=== PATIENT | female | born 1985 | race African-American/Black ===

== ENCOUNTER 2020-06-01 10:09 | Day surgery (SDC) | payer OTHER, SELFPAY ==
[~2020-06-01] VITALS: Ht 157.5 cm; Wt 78.0 kg
[2020-06-01 10:46] LABS: APPEARANCE,URINE CLEAR (CLEAR); BILIRUBIN,URINE NEGATIVE (NEGATIVE); BLOOD, URINE 2+ (NEGATIVE); COLOR,URINE YELLOW (YELLOW); LEUKOCYTE ESTERASE ,URINE NEGATIVE (NEGATIVE); NITRITE, URINE NEGATIVE (NEGATIVE); UGLUCOSE NEGATIVE (NEGATIVE)
[2020-06-01 11:53] LABS: RBC,URINE 11-20 (MOD) /HPF (0-5); WBC,URINE 0-5 /HPF (0-5)
[2020-06-01] MEDS ORDERED: ONDANSETRON 4 MG/2 ML VIAL IVP PRN (12:10)
[2020-06-01] MEDS ORDERED: GLYCOPYRROLATE 0.2 MG/ML VIAL ONE (12:10)
[2020-06-01] MEDS ORDERED: KETOROLAC 30 MG/ML VIAL ONE (12:10)
[2020-06-01] MEDS ORDERED: HYDROmorphone 1 MG/ML AMP IVP PRN (12:10)
[2020-06-01] MEDS ORDERED: ROCURONIUM 50 MG/5 ML VIAL IV ONE (12:10)
[2020-06-01] MEDS ORDERED: PROPOFOL 200 MG/20 ML VIAL IV ONE (12:10)
[2020-06-01] MEDS ORDERED: ONDANSETRON 4 MG/2 ML VIAL ONE (12:10)
[2020-06-01] MEDS ORDERED: fentaNYL 0.05 MG/ML VIAL ONE (12:10)
[2020-06-01] MEDS ORDERED: LIDOCAINE 2% 100 MG/5 ML SYR IVP ONE (12:10)
[2020-06-01] MEDS ORDERED: SUCCINYLCHOLINE CHLORIDE 200 MG/10 ML VIAL IVP ONE (12:10)
[2020-06-01] MEDS ORDERED: NEOSTIGMINE 1:1000 10 MG/10 ML VIAL ONE (12:10)
[2020-06-01] MEDS ORDERED: SEVOFLURANE 250 ML BTL INH ONE (12:10)
[2020-06-01] MEDS ORDERED: METOCLOPRAMIDE 10 MG/2 ML INJ VIAL IVP PRN (13:30)
[2020-06-01] MEDS ORDERED: diphenhydrAMINE 50 MG/ML VIAL IVP PRN (13:30)
[2020-06-01] MEDS: HYDROmorphone PFS 2 MG/ML SYR ONE ×4 (14:00→14:30)
[2020-06-01 14:50] VITALS: BP 124/64
--- NOTE | 2020-06-01 14:50 | NUR ---
RECEIVED PATIENT FROM OR NURSE VIA [facility]. PATIENT IS CURRENTLY ALERT AND ORIENTATED TIMES 4. RESPIRATIONS ARE EVEN AND UNLABORED ON ROOM AIR WITH NO DIFFICULTIES BREATHING. SKIN IS INTACT MINUS ABDOMINAL SURGICAL INCISION WITH DRESSING DRY AND INTACT. PATIENT STATED THAT SHE IS IN PAIN BUT FEELS THAT THE PAIN MEDICATIONS IS STARTING TO WORK. IV IS PATENT ASYMPTOMATIC AND INFUSING PER ORDER. SAFETY MEASURES IN PLACE AND WILL CONTINUE TO MONITOR.
--- NOTE | 2020-06-01 16:30 | NUR ---
PA ASKED FOR SOME WATER AT THIS TIME. PT IS CURRENTLY LAYING IN BED WITH NO SIGNS OF DISTRESS. PATIENT STATES THAT HER PAIN IS STARTING TO RISE. SAFETY MEASURES IN PLACE AND WILL CONTINUE TO MONITOR.
--- NOTE | 2020-06-01 17:45 | NUR ---
ENDORSE PATIENT TO [place]. PT IS CURRENTLY LAYING IN BED WITH NO =COMPLAINTS OF PAIN. SAFETY MEASURES IN PLACE AND WILL CONTINUE TO MONITOR.
--- NOTE | 2020-06-01 17:51 | NUR ---
RECEIVED REPORT FROM OLU FERNANDEZ, FOR CONTINUITY OF CARE, PT IS RESTING IN BED, SOME COMPLAINS OF PAIN, WILL MEDICATE WHEN DOSE IS DUE. PT IS STABLE, PT HAS A RIGHT AC 20G SALINE LOCK, SOTELO CATH IN PLACE, BED IN LOW POSITION, CALL LIGHT WITHIN REACH.
[2020-06-01] MEDS: KETOROLAC 30 MG/ML VIAL IVP SCH ×2 (18:03→23:40)
--- NOTE | 2020-06-01 18:06 | NUR ---
ADMINISTERED SCHEDULED MEDICATION, MEDICATION EDUCATION GIVEN, PT TOLERATED WELL, PT VERBALIZED UNDERSTANDING, PT IS STABLE, CALL LIGHT WITHIN REACH.
--- NOTE | 2020-06-01 19:21 | NUR ---
RECEIVED REPORT FROM DAY SHIFT NURSE, FOR CONTINUITY OF CARE. AA&OX4. RESPIRATIONS EVEN AND UNLABORED, BREATHING TO RA. SKIN COLOR APPROPRIATE FOR ETHNICITY. RAC 20G IV IS PATENT AND INTACT, SALINE LOCK. PT IS S/P MYOMECTOMY WITH LOWER ABDOMINAL BRANDO IN PLACE. SOTELO CATHETER IN PLACE. NO ACUTE DISTRESS NOTED. SAFETY MEASURES IN PLACE; CALL LIGHT WITHIN REACH, BED IN LOW POSITION. WILL CONTINUE TO MONITOR.
--- NOTE | 2020-06-01 19:22 | NUR ---
ENDORSE PT TO NIGHT NURSE FOR CONTINUITY OF CARE, PT IS STABLE
--- NOTE | 2020-06-01 19:57 | NUR ---
PT COMPLAINS OF SEVERE ABDOMINAL PAIN. ORDERED PRN IVP DILAUDID ADMINISTERED. WILL REASSESS PAIN. SAFETY MEASURES IN PLACE.
[2020-06-01 20:00] VITALS: BP 115/67
--- NOTE | 2020-06-01 20:11 | NUR ---
CALLED PT'S SISTER, ANAI FONG, AT: [phone] TO UPDATE HER ON PT'S CONDITION, AT PT'S REQUEST.
--- NOTE | 2020-06-01 20:45 | NUR ---
SPOKE WITH DR CAT REGARDING PT'S COMPLAINTS OF SEVERE PAIN AND SLEEPLESSNESS. PER DR CAT, 1 MG IVP DILAUDID Q2H, AND 10 MG PO AMBIEN QHS TO BE ORDERED.
[2020-06-01] MEDS ORDERED: ZOLPIDEM 10 MG TAB PO PRN (20:55)
--- NOTE | 2020-06-01 23:45 | NUR ---
SCHEDULED IVP TORADOL ADMINISTERED. ORDERED PO AMBIEN ALSO ADMINISTERED FOR PT COMPLAINTS OF INSOMNIA. PT TOLERATED PO MED WELL. MEDICATION EDUCATION PROVIDED. SAFETY MEASURES IN PLACE. TELE MONITOR ATTACHED. NO DISTRESS NOTED. WILL CONTINUE TO MONITOR.
[2020-06-02] VITALS: BP 101/50
[2020-06-02] MEDS: KETOROLAC 30 MG/ML VIAL IVP SCH ×2 (06:22→12:00)
--- NOTE | 2020-06-02 06:24 | NUR ---
SCHEDULED IVP TORADOL ADMINISTERED, AND IV FLUSHED. SOTELO CATHETER REMOVED. PT STATED THAT SHE IS CONCERNED SHE IS NOT GOING TO BE ABLE TO HOLD HER BLADDER. WILL PROVIDE PT WITH A BEDPAN, AND ENSURE CALL LIGHT IS STILL WITHIN REACH SO SHE CAN CALL FOR ASSISTANCE IF NECESSARY.
[2020-06-02] MEDS: HYDROmorphone 1 MG/ML AMP IVP PRN ×4 (07:12→15:19)
--- NOTE | 2020-06-02 07:12 | NUR ---
PT COMPLAINS OF 8/ ABDOMINAL PAIN. PRN IVP DILAUDID ADMINISTERED. PT STATES THAT THE TORADOL, " DOESN'T DO ANYTHING' FOR HER PIN. SAFETY MEASURES IN PLACE. Addendum: 06/02/20 at 0755 by Edith Rendon RN *PAIN*
--- NOTE | 2020-06-02 07:29 | NUR ---
RECEIVED REPORT FROM POWERHOUSE HELPER NURSE, PATIENT IS RESTING IN BED, AWAKENS TO VOICE. IN NO S/S RESPIRATORY DISTRESS, STILL HAS MILD DISCOMFORT D/T SURGERY. POWERHOUSE HELPER RN HAD JUST GIVEN DILAUDID. INFORMED PATIENT TO CALL NURSE WHEN READY TO AMBULATE, BED HARPER IS ALSO BY BEDSIDE. PT IS SALINE LOCK, BUT IV FLUSHES. WILL CONTINUE TO MONITOR. ALL NEEDS MET, CALL LIGHT WITHIN REACH.
--- NOTE | 2020-06-02 07:29 | NUR ---
ENDORSED TO DAYSHIFT NURSE FOR CONTINUITY OF CARE. PT IS IN STABLE CONDITION.
[2020-06-02 08:00] VITALS: BP 97/47
--- NOTE | 2020-06-02 09:22 | NUR ---
PT RESTING IN BED, ABDOMINAL PAD DRESSING INTACT WITH NO DRAINAGE NOTED. RADIAL AND DORSALIS PEDIS PULSES 2+ ON BILATERAL EXTREMITIES. PT COMPLAINS OF 8/10 ABDOMINAL PAIN, REPORTS IT FEELING SORE BUT OCCASIONALLY HAS SHARP RADIATING PAIN THAT RADIATES UPWARD INTERMITTENTLY. BLOOD PRESSURE WAS RECHECKED TO BE 114/69. DILAUDID GIVEN AND EXPLAINED TO PATIENT, EXPLAINED ABOUT THE RISKS AND BENEFITS OF NARCOTIC MEDICATIONS THEY CAN BE ADDICTIVE. PATIENT VERBALIZED UNDERSTANDING. NON PHARMACOLOGIC MEASURES FOR PAIN MANAGEMENT ALSO USED, GIVING WARM COMPRESS AND WARM DRINK. EXPLAINED ALSO TO PATIENT THE NEED TO DO DEEP BREATHING EXERCISES SO THAT PATIENT CAN PREVENT ATELECTASIS AFTER SURGERY, PATIENT VERBALIZED UNDERSTANDING. ALL NEEDS MET, CALL LIGHT WITHIN REACH, WILL CONTINUE TO MONITOR PATIENT.
--- NOTE | 2020-06-02 11:15 | NUR ---
RN STANDBY PATIENT AMBULATED TO RESTROOM AND BACK TO BED, GAIT WAS STEADY, REQUIRED NO ASSISTANCE. COMPLAINS OF CONSTANT SORE PAIN 2/10 AT ABDOMINAL INCISION SITE, NO DRAINAGE NOTED ON DRESSING. GAVE PT EDUCATION TO WALK AT LEAST EVERY TWO HOURS AND TO TAKE DEEP BREATHS VERY HOUR IN ORDER TO PREVENT ATELECTASIS. PATIENT VERBALIZED UNDERSTANDING. CALL LIGHT WITHIN REACH, AND INFORMED PATIENT TO CALL NURSE WHENEVER SHE NEEDS HELP TO AMBULATE.
--- NOTE | 2020-06-02 12:13 | NUR ---
PATIENT COMPLAINING OF 8/10 ABDOMINAL PAIN, CONSTANT, ACHING, UNRELIEVED BY REST OR WARM COMPRESS. DILAUDID GIVEN. WILL REASSESS IN ONE HOUR. PATIENT AMBULATED TO RESTROOM AND BACK TO BED. ALL NEEDS MET, CALL LIGHT WITHIN REACH WILL CONTINUE TO MONITOR.
--- NOTE | 2020-06-02 14:53 | NUR ---
PATIENT CALLED THE NURSING STATION TO TURN OFF THE LIGHT IN HER ROOM. PATIENT STATED THAT SHE IS OKAY AND DOES NOT NEED ANYTHING AT THE MOMENT. SAFETY MEASURES IN PLACE, CALL LIGHT WITHIN REACH, AND WILL CONTINUE TO MONITOR.
--- NOTE | 2020-06-02 15:04 | NUR ---
RN ON STANDBY WHILE PATIENT AMBULATED TO RESTROOM. URINE CLEAR, YELLOW. PATIENT IS CRYING BECAUSE SHE STATES THAT SHE FEELS 'SCARED'. SHE EXPRESSED THAT SHE IS PEEING EVERY HOUR, AND THAT URINARY FREQUENCY WAS ONE OF THE SYMPTOMS OF HER FIBROIDS. SHE EXPRESSED FEAR THAT THE FIBROID ISSUE HAS RETURNED. EXPLAINED TO PATIENT THAT SHE RECENTLY HAD HER SOTELO CATHETER REMOVED WHICH COULD BE A POSSIBLE EXPLANATION. PT VERBALIZED UNDERSTANDING. PT COMPLAINS OF 8/10 ACHING ABDOMINAL PAIN. DILAUDID WILL BE GIVEN. LEFT PATIENT RESTING IN BED, CALL LIGHT WITHIN REACH.
--- NOTE | 2020-06-02 15:21 | NUR ---
DILAUDID GIVEN TO PATIENT FOR 8/10 ABDOMINAL ACHING PAIN, INSTRUCTED PATIENT TO REMAIN IN BED FOR TIME BEING SHE WAS JUST GIVEN DILAUDID. PT VERBALIZED UNDERSTANDING. ALL NEEDS MET, CALL LIGHT WITHIN REACH, WILL CONTINUE TO MONITOR
[2020-06-02 16:00] VITALS: BP 115/72
--- NOTE | 2020-06-02 16:26 | NUR ---
ANSWERED PATIENT CALL LIGHT, PATIENT COMPLAINING OF FEELING "HOT" AND OF FEELING NAUSEOUS. REGLAN 10MG GIVEN FOR NAUSEA. PATIENT HAS TEMPERATURE OF 99.0F, WILL CONTINUE TO MONITOR TEMPERATURE. PT DENIES ANY CHILLS AT THIS TIME. LEFT RESTING COMFORTABLY IN BED, IN NO S/S RESPIRATORY DISTRESS, ALL NEEDS MET, CALL LIGHT WITHIN REACH.
[2020-06-02] MEDS ORDERED: oxyCODONE/APAP 5/325 MG 1 TAB TAB PO PRN (16:55)
[2020-06-02 16:57] LABS: BASOPHILS % (AUTO) 0.3 % (0.0-2.0); EOSINOPHILS # (AUTO) 0.1 K/uL (0-0.4); EOSINOPHILS % (AUTO) 0.9 % (0.0-4.0); HEMATOCRIT 40.4 % (36-48); HEMOGLOBIN 13.2 g/dL (12.0-16.0); LYMPHOCYTES # (AUTO) 3.1 K/uL (2.5-16.5); LYMPHOCYTES % (AUTO) 23.4 % (20.5-51.1); MEAN CORPUSCULAR HEMOGLOBIN 30 pg (27-31); MEAN CORPUSCULAR HGB CONC 33 g/dL (33-37); MEAN CORPUSCULAR VOLUME 92.9 fL (80-94); MONOCYTES # (AUTO) 1.2 K/uL (0.8-1.0); MONOCYTES % (AUTO) 8.7 % (1.7-9.3); NEUTROPHILS # (AUTO) 8.9 K/uL (1.8-7.7); NEUTROPHILS % (AUTO) 66.7 % (42.2-75.2); PLATELET COUNT (AUTO) 263 K/uL (140-450); RED BLOOD CELL COUNT(AUTO) 4.35 MIL/uL (4.20-5.40); RED CELL DISTRIBUTION WIDTH 13.2 % (11.6-13.7); WHITE BLOOD COUNT (AUTO) 13.4 K/uL (4.8-10.8)
--- NOTE | 2020-06-02 17:00 | NUR ---
DR. CAT IN TO ASSESS PATIENT, MADE AWARE OF PT TEMPERATURE OF 99, AND PT FEELING "HOT". MD ASSESSED SURGICAL SITE, NO DRAINAGE NOTED, BRANDO INTACT AND NO DEHISCENCE NOTED. MD EXPLAINED TO PATIENT PLAN OF CARE, THAT SHE MAY BE STAYING ANOTHER DAY. URINALYSIS CUP BY BATHROOM FOR SPECIMEN COLLECTION. ALL NEEDS MET, CALL LIGHT WITHIN REACH, WILL CONTINUE TO MONITOR.
--- NOTE | 2020-06-02 18:06 | NUR ---
CLEANSED SURGICAL SITE WITH NORMAL SALINE, NO DRAINAGE NOTED. PATIENT STATES SHE "FEELS A LITTLE BETTER." COVERED SITE WITH DRY DRESSING, SET UP FOR DINNER. ALL NEEDS MET, CALL LIGHT WITHIN REACH. WILL CONTINUE TO MONITOR
[2020-06-02] MEDS: IBUPROFEN 800 MG TAB PO SCH (19:02)
--- NOTE | 2020-06-02 19:05 | NUR ---
IBUPROFEN GIVEN TO PT DUE TO TEMPERATURE OF 99. PT LEFT RESTING IN BED IN NO S/S RESPIRATORY DISTRESS NO COMPLAINTS OF PAIN. WILL CONTINUE TO MONITOR.
--- NOTE | 2020-06-02 19:20 | NUR ---
RECEIVED BEDSIDE REPORT FROM DAY SHIFT NURSE. PATIENT IS AWAKE, ALERT, AND COOPERATIVE. RESPIRATION EVEN UNLABORED ON ROOM AIR. NO DISTRESS NOTED. SKIN IS WARM AND DRY. IV PATENT AND INTACT. PLAN OF CARE WAS DISCUSSED. ALL SAFETY MEASURES IN PLACE. BED IS AT LOW POSITION. CALL LIGHT WITHIN REACH AND VERBALIZES ITS USE. WILL CONTINUE TO MONITOR.
--- NOTE | 2020-06-02 19:26 | NUR ---
GAVE REPORT TO CURING ROOM SUPERVISOR NURSE REGARDING PATIENT CONDITION AND PLAN OF CARE. ENDORSED REGARDING PATIENT'S URINALYSIS COLLECTION AND THAT SPECIMEN CUP IS BY THE BATHROOM. PATIENT IS STABILIZED, RESTING IN BED, DOES NOT COMPLAIN OF ANY PAIN OR CHILLS. IS ON ROOM AIR. SCDS ON. ALL NEEDS MET, CALL LIGHT WITHIN REACH.
--- NOTE | 2020-06-02 20:15 | NUR ---
INITIAL ASSESSMENT DONE. ABD INCISION NOTED. APPLIED ABD BINDER. WILL CONTINUE TO MONITOR.
--- NOTE | 2020-06-02 22:33 | NUR ---
CHECKED PATIENT. PATIENT SLEEPING RESPIRATION EVEN UNLABORED ON ROOM AIR. NO DISTRESS NOTED. WILL CONTINUE TO MONITOR.
[2020-06-03] VITALS: BP 110/57
--- NOTE | 2020-06-03 00:10 | NUR ---
VITALS WERE TAKEN. PATIENT IN STABLE CONDITION. WILL CONTINUE TO MONITOR.
--- NOTE | 2020-06-03 04:15 | NUR ---
CHECKED PATIENT. PATIENT SLEEPING RESPIRATION EVEN UNLABORED ON ROOM AIR. NO DISTRESS NOTED. WILL CONTINUE TO MONITOR.
--- NOTE | 2020-06-03 07:11 | NUR ---
PATIENT HAS BEEN SCREENED AND CATEGORIZED LOW NUTRITION RISK. PATIENT WILL BE SEEN WITHIN 7 DAYS OF ADMISSION. 06/08/20 BIANKA CASTILLO MS, RDN
[2020-06-03 07:18] LABS: APPEARANCE,URINE CLEAR (CLEAR); BILIRUBIN,URINE NEGATIVE (NEGATIVE); COLOR,URINE YELLOW (YELLOW); LEUKOCYTE ESTERASE ,URINE NEGATIVE (NEGATIVE); NITRITE, URINE NEGATIVE (NEGATIVE); UGLUCOSE NEGATIVE (NEGATIVE)
--- NOTE | 2020-06-03 07:24 | NUR ---
ENDORSED PATIENT TO DAY SHIFT NURSE FOR CONTINUITY OF CARE. PATIENT IN STABLE CONDITION.
[2020-06-03 07:27] LABS: BLOOD, URINE 1+ (NEGATIVE)
[2020-06-03 07:28] LABS: RBC,URINE 0-5 /HPF (0-5); WBC,URINE 0-5 /HPF (0-5)
--- NOTE | 2020-06-03 07:30 | NUR ---
RECEIVED PT IN BED AAOX4, NO SOB NOTED, NO C/O PAIN AT THIS TIME. IV TO RAC PATENT AND INTACT. CHEST CLEAR, ABDOMEN SOFT, BOWEL SOUNDS PRESENT. WITH LOWER ABDOMINAL SURGICAL INCISIONS, WITH BRANDO,S/P MYOMECTOMY 06/01/2020, DRESSING CLEAN, DRY AND INTACT. Addendum: 06/03/20 at 1016 by Angelica Cardona RN PLS DISREGARD ABOVE NOTES, INCOMPLETE NOTES.
--- NOTE | 2020-06-03 07:30 | NUR ---
RECEIVED PT IN BED AAOX4, NO SOB NOTED, NO C/O PAIN AT THIS TIME. IV TO RAC PATENT AND INTACT. CHEST CLEAR, ABDOMEN SOFT, BOWEL SOUNDS PRESENT. WITH LOWER ABDOMINAL SURGICAL INCISIONS, WITH BRANDO,S/P MYOMECTOMY 06/01/2020, DRESSING CLEAN, DRY AND INTACT. INSTRUCTED PT TO CALL FOR ASSISTANCE, CALL LIGHT WITHIN REACH, PT VERBALIZED UNDERSTANDING.
[2020-06-03 08:00] VITALS: BP 117/69
--- NOTE | 2020-06-03 09:00 | NUR ---
PT TOLERATED REGULAR DIET, NO N&V NOTED. NO C/O PAIN AT THIS TIME.
[2020-06-03] MEDS: IBUPROFEN 800 MG TAB PO SCH (09:28)
--- NOTE | 2020-06-03 12:00 | NUR ---
SPOKE WITH DR. CAT, STATED HE WILL SEND PT'S E-SCRIPT TO PT'S PREFERRED PHARMACY IN [place]. PT NOTIFIED, VERBALIZED UNDERSTANDING.
--- NOTE | 2020-06-03 13:00 | NUR ---
PER DR. CAT, PT'S STAPLE WILL BE TAKEN OUT IN 1 WEEK AT HIS OFFICE. PROVIDED PT WITH DR. CAT'S OFFICE NUMBER TO CALL AND CONFIRM FOLLOW UP APPOINTMENT. PT VERBALIZED UNDERSTANDING.
--- NOTE | 2020-06-03 13:45 | NUR ---
ENDORSED TO JONES TO CONTINUE WITH THE DISCHARGE PROCESS.
== END 2020-06-03 15:25 | disposition home or self-care (01) ==
LOC: MDS 10:09 → MMU 10:09 → MDS 06-03 15:25
PROVIDERS: ATTEND Obstetrics & Gynecology
DX: D25.9 Leiomyoma of uterus, unspecified (principal); Z11.59 Encounter for screening for other viral diseases; F41.9 Anxiety disorder, unspecified; Z79.899 Other long term (current) drug therapy
CPT/HCPCS: 36415; 58140; 81001; 85025; 86886; 86900; 86901; 87086; J0330; J0690; J1170; J1885; J2001; J2405; J2704; J2710; J2765; J3010; J3490; J7060; J7120; U0003